=== PATIENT | male | born 1975 | race Hispanic/Latino ===

== ENCOUNTER 2020-01-23 22:32 | Emergency (ER) | payer SELFPAY ==
[2020-01-23] MEDS ORDERED: HYDROCODONE/APAP 10/325 TAB ONE (23:12)
[2020-01-23] MEDS ORDERED: IBUPROFEN 400 MG TAB ONE (23:12)
--- NOTE | 2020-01-23 23:19 | EDPHYS ---
Physician Documentation [facility] Name: Rishi Godfrey Age: 44 yrs Sex: Male : 1975 Arrival Date: 01/23/2020 Time: 22:34 Bed 24 Private MD: ED Physician Jose Camacho HPI: 01/22 22:46 This 44 yrs old Male presents to ER via Unassigned with complaints of Foot rn Pain. 22:46 The patient presents with pain, that is chronic. The complaints affect the right foot. rn Onset: The symptoms/episode began/occurred 3 month(s) ago. Modifying factors: The symptoms are alleviated by brace/compression the symptoms are aggravated by weight bearing, movement. Severity of symptoms: At their worst the symptoms were moderate, in the emergency department the symptoms are unchanged. The patient has not experienced similar symptoms in the past. The patient has not recently seen a physician. 22:49 Reports 3 months of foot pain, daily, started after falling on foot from a few feet, rn was never seen for foot or xrays obtained, improved with compression brace, reports pain got worse recently without new injury. . Historical: - Allergies: 22:51 No Known Allergies; ea - Home Meds: 22:51 None [Active]; ea - PMHx: 22:51 None; ea - PSHx: 22:51 None; ea - Immunization history:: Adult Immunizations unknown. - Family history:: not pertinent. - Social history:: Smoking status: Patient denies any tobacco usage or history of. - Hospitalizations: : No recent hospitalization is reported. ROS: 22:46 Constitutional: Negative for fever, chills, and weight loss, MS/Extremity: Negative for rn deformity Skin: Negative for injury, rash, and discoloration, Neuro: Negative for weakness, numbness, tingling Exam: 22:46 Constitutional: This is a well developed, well nourished patient who is awake, alert, rn and in no acute distress. Skin: Warm, dry with normal turgor. Normal color with no rashes, no lesions, and no evidence of cellulitis. MS/ Extremity: Pulses equal, no cyanosis. Neurovascular intact. Full, normal range of motion. Equal circumference. + tenderness right calcaneus on plantar surface, no open wound or signs of foreign body. No deformity Neuro: Awake and alert, Motor strength 5/5 in all extremities. Sensory grossly intact. Vital Signs: 22:48 BP 130 / 92; Pulse 73; Resp 19; Temp 98.3; Pulse Ox 95% on R/A; Weight 63.5 kg; Height ea 6 ft. (182.88 cm); 22:48 Body Mass Index 18.99 (63.50 kg, 182.88 cm) ea MDM: 22:39 Patient medically screened. rn 23:16 Differential diagnosis: fracture, sprain, arthritis, neuropathy. Data reviewed: vital rn signs, nurses notes, radiologic studies, plain films, and as a result, I will discharge patient. Test interpretation: by ED physician or midlevel provider: plain radiologic studies, Xray right foot neg for foreign body or acute fracture. Counseling: I had a detailed discussion with the patient and/or guardian regarding: the historical points, exam findings, and any diagnostic results supporting the discharge/admit diagnosis, radiology results, the need for outpatient follow up, to return to the emergency department if symptoms worsen or persist or if there are any questions or concerns that arise at home. Response to treatment: the patient's symptoms have mildly improved after treatment, and as a result, I will discharge patient. Special discussion: I discussed with the patient/guardian in detail that at this point there is no indication for admission to the hospital. It is understood, however, that if the symptoms persist or worsen the patient needs to return immediately for re-evaluation. Based on the history and exam findings, there is no indication for further emergent testing or inpatient evaluation. I discussed with the patient/guardian the need to see the family services specialist for further evaluation of the symptoms. 01/22 22:45 Order name: XRAY Foot RIGHT 3 View rn Administered Medications: 23:02 Drug: [place] 10 mg-325 mg 1 tabs Route: PO; ls4 23:02 Drug: Motrin 800 mg Route: PO; ls4 Disposition: 01/23/20 23:18 Discharged to Home. Impression: Pain in right foot. - Condition is Stable. - Discharge Instructions: Foot Pain. - Prescriptions for Diclofenac Sodium 75 mg Oral Tablet, Delayed Release (E.C.) - take 1 tablet by ORAL route 2 times per day; 20 tablet. - Medication Reconciliation Form, Thank You Letter, Antibiotic Education, Prescription Opioid Use form. - Follow up: Private Physician; When: As needed; Reason: Recheck today's complaints, Re-evaluation by your physician. - Problem is an ongoing problem. - Symptoms have improved. Signatures: Dispatcher [employer] EDKyaw Donald, RN Jose Amador MD MD rn Antunez, Elena, RN RN ea Stewart, Lisa RN RN ls4 Corrections: (The following items were deleted from the chart) 23:41 23:18 01/23/2020 23:18 Discharged to Home. Impression: Pain in right foot. Condition is sg Stable. Forms are Medication Reconciliation Form, Thank You Letter, Antibiotic Education, Prescription Opioid Use. Follow up: Private Physician; When: As needed; Reason: Recheck today's complaints, Re-evaluation by your physician. Problem is an ongoing problem. Symptoms have improved. rn
--- NOTE | 2020-01-23 23:19 | ER ---
Nurse's Notes [facility] Name: Rishi Godfrey Age: 44 yrs Sex: Male : 1975 Arrival Date: 01/23/2020 Time: 22:34 Bed 24 Private MD: Diagnosis: Pain in right foot Presentation: 01/22 22:48 Chief complaint: Patient states: Pt reports jumping off a scaffold that was 6 feet high ea three months ago, reported that he landed on his right heel and it has been hurting ever since. Pt reports the pain was being controlled with a brace and over the counter medications but now the pain does not subside and it hurts when he stands on it. Coronavirus screen: Proceed with normal triage. Ebola Screen: No symptoms or risks identified at this time. Initial Sepsis Screen: Does the patient meet any 2 criteria? No. Patient's initial sepsis screen is negative. Does the patient have a suspected source of infection? No. Patient's initial sepsis screen is negative. Risk Assessment: Do you want to hurt yourself or someone else? Patient reports no desire to harm self or others. Onset of symptoms was January 23, 2020. 22:48 Method Of Arrival: Carried ea 22:48 Acuity: TAYLOR 4 ea Triage Assessment: 22:52 General: Appears uncomfortable, Behavior is appropriate for age. Pain: Complains of ea pain in right foot. Historical: - Allergies: 22:51 No Known Allergies; ea - Home Meds: 22:51 None [Active]; ea - PMHx: 22:51 None; ea - PSHx: 22:51 None; ea - Immunization history:: Adult Immunizations unknown. - Family history:: not pertinent. - Social history:: Smoking status: Patient denies any tobacco usage or history of. - Hospitalizations: : No recent hospitalization is reported. Screenin:51 Abuse screen: Denies threats or abuse. Nutritional screening: No deficits noted. ea Tuberculosis screening: No symptoms or risk factors identified. Fall Risk None identified. Assessment: 23:02 General: Appears in no apparent distress. comfortable, Behavior is calm, cooperative. ls4 Neuro: No deficits noted. Cardiovascular: No deficits noted. Respiratory: No deficits noted. GI: No deficits noted. : No deficits noted. Derm: No deficits noted. No signs and/or symptoms reported regarding the dermatologic system. Musculoskeletal: Circulation, motion, and sensation intact. Capillary refill < 3 seconds, Range of motion: intact in all extremities, Swelling absent Reports pain in right foot since 3 months. PT AMBULATES UNASSISTED, WITHOUT AIDS. Injury Description: NO VISIBLE INJURY. Vital Signs: 22:48 BP 130 / 92; Pulse 73; Resp 19; Temp 98.3; Pulse Ox 95% on R/A; Weight 63.5 kg; Height ea 6 ft. (182.88 cm); 22:48 Body Mass Index 18.99 (63.50 kg, 182.88 cm) ea ED Course: 22:34 Patient arrived in ED. cl3 22:39 Jose Camacoh MD is Attending Physician. rn 22:51 Triage completed. ea 22:51 Arm band placed on right wrist. Patient placed in an exam room, on a stretcher, on ea pulse oximetry. 22:51 Patient has correct armband on for positive identification. Bed in low position. Call ea light in reach. 23:00 XRAY Foot RIGHT 3 View In Process Unspecified. EDMS 23:01 Amanda Mosley, RN is Primary Nurse. ls4 23:04 No provider procedures requiring assistance completed. Patient did not have IV access ls4 during this emergency room visit. Patient maintains SpO2 saturation greater than 95% on room air. Administered Medications: 23:02 Drug: [place] 10 mg-325 mg 1 tabs Route: PO; ls4 23:02 Drug: Motrin 800 mg Route: PO; ls4 Outcome: 23:18 Discharge ordered by . rn 23:41 Patient left the ED. ls4 23:41 Discharged to home ambulatory. ls4 23:41 Condition: good ls4 23:41 Discharge instructions given to patient, Instructed on discharge instructions, follow up and referral plans. medication usage, safety practices, Demonstrated understanding of instructions, follow-up care, medications. Signatures: Dispatcher [employer] EDMS Kyaw Faye RN RN sg Nieto, Roman, MD MD rn Antunez, Elena, RN RN ea Stewart, Lisa, RN RN ls4 Prashant Rodas cl3 Corrections: (The following items were deleted from the chart) 01/23 00:46 05 23:41 Patient left the ED. [facility]
[2020-01-23 23:46] VITALS: BP 130/92; TEMP 98.3; O2SAT 95
--- NOTE | 2020-01-24 07:47 | RAD REPORT ---
EXAM DESCRIPTION: RAD - Foot Right 3 View - 01/23/2020 10:59 pm CLINICAL HISTORY: Right foot pain FINDINGS: No fracture or dislocation is seen. Large plantar calcaneal spur
== END 2020-01-23 23:41 | disposition home or self-care (01) ==
LOC: ER 22:32
DX: M79.671 Pain in right foot (principal)
CPT/HCPCS: 99284

== ENCOUNTER 2021-03-23 14:18 | Emergency (ER) | payer OTHER, SELFPAY ==
[2021-03-23 14:49] LABS: Absolute Lymphocytes (CBC) 8.8 K/uL (0.7-4.9); Basophils % 0.9 % (0-1.3); Hematocrit 45.6 % (39.6-49.0); Lymphocytes % 55.5 % (15.3-44.8); MPV 9.9 fL (7.6-11.3)
[2021-03-23 14:54] LABS: Protime INR 1.03
[2021-03-23 15:01] LABS: Potassium 3.9 mmol/L (3.5-5.1)
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
--- NOTE | 2021-03-23 15:24 | RAD REPORT ---
EXAM DESCRIPTION: RAD - Elbow Left 3 View - 03/23/2021 3:06 pm CLINICAL HISTORY: Left elbow pain status post trauma FINDINGS: Limited two view series obtained. Laceration involves the soft tissue of the elbow. No gross fracture or dislocation is seen.
[2021-03-23] MEDS ORDERED: LIDOCAINE 1% 20 ML MDV ONE (15:27)
--- NOTE | 2021-03-23 15:27 | RAD REPORT ---
EXAM DESCRIPTION: Jacque Flores Left03/23/2021 3:06 pm CLINICAL HISTORY: Left leg pain status post injury FINDINGS: Markedly displaced fracture involves the distal diaphysis left fibular. Comminuted moderately displaced fracture involves mid to distal diaphysis left tibia. A curvilinear density within the anterior soft tissue adjacent to the fibular fracture could represen t foreign body or avulsed bone fragment
--- NOTE | 2021-03-23 15:28 | RAD REPORT ---
EXAM DESCRIPTION: Neisha Single View03/23/2021 3:06 pm CLINICAL HISTORY: Chest pain COMPARISON: none FINDINGS: The lungs appear clear of acute infiltrate. The heart is normal size. Known left ninth rib fracture not clearly seen on this exam
[2021-03-23] MEDS ORDERED: TETANUS & DIPHTHERIA TOX,ADULT 0.5 ML VIAL ONE (15:30)
[2021-03-23] MEDS ORDERED: CEFAZOLIN/SWI 1gm 1 GM/10 ML SYR ONE (15:30)
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
[2021-03-23 16:17] VITALS: TEMP 97.4
[2021-03-23 16:19] VITALS: BP 145/81; O2SAT 95
[2021-03-23 19:34] LABS: Blood Morphology Comment NOT SEEN (NOT SEEN); Platelet Estimate ADEQ; White Blood Cell Scan OK (OK)
== END 2021-03-23 16:09 | disposition short-term general hospital (02) ==
LOC: ER 14:18
DX: S32.89XA Fracture of other parts of pelvis, initial encounter for closed fracture (principal); S22.32XA Fracture of one rib, left side, initial encounter for closed fracture; S82.202A Unspecified fracture of shaft of left tibia, initial encounter for closed fracture; S82.402A Unspecified fracture of shaft of left fibula, initial encounter for closed fracture; S20.212A Contusion of left front wall of thorax, initial encounter; S20.221A Contusion of right back wall of thorax, initial encounter; V48.5XXA Car driver injured in noncollision transport accident in traffic accident, initial encounter; Z23 Encounter for immunization; Z20.822 Contact with and (suspected) exposure to COVID-19
CPT/HCPCS: 85025; 80048; 36415; 80320; 86900; 86850; 85610; 86901; 85730; 70450; 72125; 71260; 74177; 71045; 73080; 73590; 90471; 90714; 99285; U0003; Q9967; J0690; G0390